=== PATIENT | male | born 1930 | race Caucasian/White ===

== ENCOUNTER → 2016-10-15 | Outpatient (CLI) | payer OTHER | LOC: SBRMNEURO 21:00 | PROVIDERS: ATTEND Psychiatry & Neurology Sleep Medicine | DX: G47.33 Obstructive sleep apnea (adult) (pediatric) (principal) ==

== ENCOUNTER → 2017-01-01 | Outpatient (CLI) | payer OTHER | LOC: FCPNEURO 21:00 | PROVIDERS: ATTEND Psychiatry & Neurology Sleep Medicine | DX: G47.33 Obstructive sleep apnea (adult) (pediatric) (principal) ==

== ENCOUNTER → 2017-03-11 | Outpatient (CLI) | payer OTHER | LOC: BHFA 13:15 | PROVIDERS: ATTEND Internal Medicine Cardiovascular Disease | DX: I38 Endocarditis, valve unspecified (principal); I10 Essential (primary) hypertension; R60.9 Edema, unspecified ==

== ENCOUNTER 2017-04-15 10:10 | Inpatient (IN) | payer OTHER ==
--- NOTE | 2017-04-15 10:52 | CPEKG ---
Heart Rate: 63 RR Interval: 952 QRSD Interval: 114 QT Interval: 448 QTC Interval: 459 QRS Maxie: -36 T Wave Maxie: 40 EKG Severity - ABNORMAL ECG - EKG Impression: ATRIAL FIBRILLATION EKG Impression: NONSPECIFIC IVCD WITH LAD Electronically Signed By: Keron Aguirre 15-Apr-2017 14:57:55
--- NOTE | 2017-04-15 11:42 | EDPHY ---
H & P Stated Complaint: Got dizzy,fell, bit lip Time Seen by Provider: 04/15/17 11:20 - Personal History Current Tetanus Diphtheria and Acellular Pertussis (TDAP): Yes - Medical/Surgical History Hx Asthma: No Hx Chronic Respiratory Disease: No Hx Diabetes: No Hx Cardiac Disease: Yes Hx Renal Disease: No Hx Cirrhosis: No Hx Alcoholism: No Hx HIV/AIDS: No Hx Splenectomy or Spleen Trauma: No Other PMH: PSH: ascending aorta replaced; R shoulder; partial colectomy; vasectomy; appy; T&A; l inguinel hernia; atriclip GRACE exclusion clip. PMH: AAA ; hyperlipidemia; htn; afib; peripheral neuropathy; - Social History Smoking Status: Never smoked Constitutional: Initial Vital Signs Temperature (C) 36.4 C 04/15/17 10:14 Heart Rate 68 04/15/17 10:14 Respiratory Rate 16 04/15/17 10:14 Blood Pressure 137/75 H 04/15/17 10:14 O2 Sat (%) 94 04/15/17 10:14 O2 Delivery Mode Room Air Allergies/Adverse Reactions: lisinopril Allergy (Unknown, Verified 04/15/17 10:13) amiodarone HCl [From Cordarone] Allergy (Verified 04/15/17 10:13) cat dander Allergy (Verified 04/15/17 10:13) ibuprofen [From Advil] Allergy (Verified 04/15/17 10:13) ARMS ITCH NSAIDS (Non-Steroidal Anti-Inflamma Allergy (Verified 04/15/17 10:13) Penicillins Allergy (Verified 04/15/17 10:13) HANDS SWELLED Home Medications: Medication Instructions Recorded Atorvastatin Calcium [Lipitor] 20 mg PO DAILY 11/21/11 Carvedilol [Coreg] 3.125 mg PO BIDMEAL 11/21/11 Famotidine [Pepcid] 20 mg PO DAILY 11/21/11 Ascorbic Acid [Vitamin C 500 mg 04/02/13 (OTC)] Aspirin EC [Aspirin EC 325 mg 04/02/13 (OTC)] Cholecalciferol (Vitamin D3) 400 unit PO 04/02/13 [Vitamin D3] Clobetasol 0.05% [Temovate Cream] 04/02/13 Glucosam/Chondroit/C/Manganese 04/02/13 [Cosamin Ds Capsule] Hydrocodone/APAP 5/325 [Springs 1 - 2 tab PO Q4PRN PRN #20 tab 04/02/13 5/325 (*)] Latanoprost [Xalatan 0.005% (RX)] 04/02/13 Methocarbamol [Robaxin 750 mg (*)] 750 - 1,500 mg PO QID PRN #30 tab 04/02/13 Ubidecarenone [Co Q-10 200 mg] 04/02/13 hydrOXYzine HCL [Hydroxyzine HCl] 04/02/13 Bystolic 11/19/15 Norvasc 2.5 mg (RX) 11/19/15 Xalatan 0.005% (RX) 11/19/15 Medical Decision Making - Diagnostics Imaging Results: Imaging Impressions Head CT 04/15/17 12:05 Impression: 1. Moderate atrophy. 2. No hemorrhage, mass effect, or definite acute peripheral infarct. 3. Tiny chip fracture suspected associated with the anterior margin of the nasal bone as well as nasal spine. Findings discussed with Keron Aguirre MD at 13:05 hour, 04/15/2017. Imaging: Discussed imaging studies w/ lidding machine operator Radiologist, I viewed and interpreted images myself ED Course/Re-evaluation: CHIEF COMPLAINT: Dizziness, syncope HISTORY OF PRESENT ILLNESS: The patient is an 86 y/o male, with a history of atrial fibrillation, arriving with his complaining of dizziness and subsequent syncope this morning. He was walking around the track at the [facility] and began to feel dizzy. He walked towards the bleachers to sit down, but believes he passed out before getting there. He fell on his left side and struck his face. He complains of right rib pain and lip abrasion. He denies unilateral weakness, paresthesias, headache, vision changes, speech difficulty, recent illness. He does mention he's had an intermittently rapid heart rate over the last few weeks, but denies any associated symptoms with this previously. No anticoagulants. REVIEW OF SYSTEMS: A 10 point review of systems was performed and is negative with the exception of the elements mentioned in the history of present illness. PHYSICAL EXAM: HR, BP, O2 Sat, RR. Temp noted General Appearance: Alert, well hydrated, appropriate, and non-toxic appearing. Head: Atraumatic without scalp tenderness or obvious injury Eyes: Pupils equal, round, reactive to light and accommodation, EOMI, no trauma , no injection. Nose: Atraumatic, no rhinorrhea, clear. Nasal contusion. Throat: Mucus membranes moist. Lip contusion. Neck: Supple, non-tender, no lymphadenopathy. Respiratory: No retractions, no distress, no wheezes, and no accessory muscle use. Lungs are clear to auscultation bilaterally. Cardiovascular: Irregularly irregular rate and rhythm, no murmurs, rubs, or gallops. Good capillary refill all extremities. Gastrointestinal: Abdomen is soft, non-tender, non-distended, no masses, no rebound, no guarding, no peritoneal signs. Musculoskeletal: Normal active ROM of all extremities, atraumatic. Tenderness to right anterior ribs. Neurological: Alert, appropriate, and interactive. Nonfocal neuro exam. Skin: No rashes, good turgor, no nodules on palpation. PAST MEDICAL HISTORY: Atrial fibrillation, AAA; hyperlipidemia, hypertension, peripheral neuropathy; PAST SURGICAL HISTORY: ascending aorta replaced; R shoulder; partial colectomy; vasectomy; appendectomy; T&A; l inguinal hernia; AtriClip GRACE exclusion clip SOCIAL HISTORY: at bedside Hiv Prevention Specialist: Dr. Mendoza DIAGNOSTICS/PROCEDURES/CRITICAL CARE TIME: The 12 lead EKG was interpreted by myself. Atrial fibrillation rate 65. See hard copy and/or "tracemaster" electronic copy for interpretation. Head CT: normal Maxillofacial CT: minor nasal fracture Chest CTA: nondisplaced right anterior rib fractures DIFFERENTIAL DIAGNOSIS: The differential diagnosis for the patient's syncope included but was not limited to vasovagal syncope, arrhythmia, dehydration, cardiogenic causes, neurogenic causes, and blood loss. MEDICAL DECISION MAKING: This is an non-anticoagulated 86 y/o male with a history of atrial fibrillation who presents with dizziness and facial contusion secondary to a syncope this morning. He has small lip and nasal contusion on exam and irregular heart rate. His neuro exam is normal. Plan for IV, labs, EKG, head, face, and chest CTs. He will likely require admission. EKG shows rate-controlled atrial fibrillation. CTs pending. 1203: Spoke with hospitalist service. Dr. Ortiz accepts admission. Patient intermittently drops heart rate into 40-50s. I've consulted with Dr. Mendoza and [place] from cardiology. They will follow him during admission. BNP is elevated at 843. - Data Points Laboratory Results: Laboratory Results 04/15/17 11:18 04/15/17 11:18 04/15/17 04/15/17 04/15/17 11:18 11:18 11:18 WBC 9.66 10^3/uL H 10^3/uL (3.80-9.50) RBC 4.49 10^6/uL 10^6/uL (4.40-6.38) Hgb 13.7 g/dL g/dL (13.7-17.5) Hct 41.6 % % (40.0-51.0) MCV 92.7 fL fL (81.5-99.8) MCH 30.5 pg pg (27.9-34.1) MCHC 32.9 g/dL g/dL (32.4-36.7) RDW 13.1 % % (11.5-15.2) Plt Count 204 10^3/uL 10^3/uL (150-400) MPV 9.5 fL fL (8.7-11.7) Neut % (Auto) 80.7 % H % (39.3-74.2) Lymph % (Auto) 10.2 % L % (15.0-45.0) [place] % (Auto) 5.2 % % (4.5-13.0) Eos % (Auto) 2.4 % % (0.6-7.6) Baso % (Auto) 0.7 % % (0.3-1.7) Nucleat RBC Rel Count 0.0 % % (0.0-0.2) Absolute Neuts (auto) 7.79 10^3/uL H 10^3/uL (1.70-6.50) Absolute Lymphs (auto) 0.99 10^3/uL L 10^3/uL (1.00-3.00) Absolute Monos (auto) 0.50 10^3/uL 10^3/uL (0.30-0.80) Absolute Eos (auto) 0.23 10^3/uL 10^3/uL (0.03-0.40) Absolute Basos (auto) 0.07 10^3/uL 10^3/uL (0.02-0.10) Absolute Nucleated RBC 0.00 10^3/uL 10^3/uL (0-0.01) Immature Gran % 0.8 % % (0.0-1.1) Immature Gran # 0.08 10^3/uL 10^3/uL (0.00-0.10) PT 13.7 SEC SEC (12.0-15.0) INR 1.06 (0.83-1.16) APTT 29.8 SEC SEC (23.0-38.0) Sodium 138 mEq/L mEq/L (134-144) Potassium 4.7 mEq/L mEq/L (3.5-5.2) Chloride 101 mEq/L mEq/L (97-110) Carbon Dioxide 23 mEq/l mEq/l (22-31) Anion Gap 14 mEq/L mEq/L (8-16) BUN 23 mg/dL mg/dL (7-23) Creatinine 0.9 mg/dL mg/dL (0.7-1.3) Estimated GFR > 60 Glucose 96 mg/dL mg/dL (70-100) Calcium 9.2 mg/dL mg/dL (8.5-10.4) Magnesium 2.3 mg/dL mg/dL (1.6-2.3) Troponin I < 0.012 ng/mL ng/mL (0-0.034) NT-Pro-B Natriuret Pep 843 pg/mL H pg/mL (0-450) Departure - Departure Disposition: [facility] Inpatient Acute Clinical Impression: Atrial fibrillation Qualifiers: Atrial fibrillation type: chronic Qualified Code(s): I48.2 - Chronic atrial fibrillation Syncope Qualifiers: Syncope type: unspecified Qualified Code(s): R55 - Syncope and collapse Contusion Qualifiers: Encounter type: initial encounter Contusion area: head Contusion of head detail : lip Qualified Code(s): S00.531A - Contusion of lip, initial encounter Left rib fracture Qualifiers: Encounter type: initial encounter Rib fracture type: multiple ribs Fracture type: closed Qualified Code(s): S22.42XA - Multiple fractures of ribs, left side , initial encounter for closed fracture Nasal fracture Qualifiers: Encounter type: initial encounter Fracture type: closed Qualified Code(s): S02.2XXA - Fracture of nasal bones, initial encounter for closed fracture Condition: Fair Report Scribed for: Keron Aguirre Report Scribed by: Evelia Curiel Date of Report: 04/15/17 Time of Report: 11:42
[2017-04-15 12:10] LABS: % IMMATURE GRANULYOCYTES 0.8 % (0.0-1.1); ABSOLUTE IMMATURE GRANULOCYTES 0.08 10^3/uL (0.00-0.10); ADD DIFF? NO; ADD MORPH? NO; ADD SCAN? NO; ATYPICAL LYMPHOCYTE FLAG 0 (0-99); FRAGMENT RBC FLAG 0 (0-99); HEMATOCRIT 41.6 % (40.0-51.0); HEMOGLOBIN 13.7 g/dL (13.7-17.5); LEFT SHIFT FLG 10 (0-99); LIPEMIA HEMOLYSIS FLAG 80 (0-99); MEAN CELL HEMOGLOBIN 30.5 pg (27.9-34.1); MEAN CELL HEMOGLOBIN CONCENTR. 32.9 g/dL (32.4-36.7); MEAN CELL VOLUME 92.7 fL (81.5-99.8); MEAN PLATELET VOLUME 9.5 fL (8.7-11.7); PLATELET CLUMPS FLAG 10 (0-99); PLATELET COUNT 204 10^3/uL (150-400); RED BLOOD CELL COUNT 4.49 10^6/uL (4.40-6.38); RED CELL DISTRIBUTION WIDTH 13.1 % (11.5-15.2)
[2017-04-15 12:14] LABS: INR 1.06 (0.83-1.16); PROTIME(PATIENT) 13.7 SEC (12.0-15.0)
[2017-04-15 12:15] LABS: APTT 29.8 SEC (23.0-38.0)
[2017-04-15 12:19] LABS: ANION GAP 14 mEq/L (8-16); CALCIUM 9.2 mg/dL (8.5-10.4); CARBON DIOXIDE 23 mEq/l (22-31); CHLORIDE 101 mEq/L (97-110); CREATININE 0.9 mg/dL (0.7-1.3); GLOMERULAR FILTRATION RATE > 60; GLUCOSE 96 mg/dL (70-100); MAGNESIUM 2.3 mg/dL (1.6-2.3); POTASSIUM 4.7 mEq/L (3.5-5.2); SODIUM 138 mEq/L (134-144)
[2017-04-15 12:29] LABS: TROPONIN I < 0.012 ng/mL (0-0.034)
[2017-04-15] MEDS ORDERED: IOPAMIDOL (ISOVUE-300) 100 ML BTL ONE (12:31)
[2017-04-15] MEDS ORDERED: ACETAMINOPHEN 325 MG TAB PO PRN (14:32)
[2017-04-15] MEDS ORDERED: HYDROmorphONE/DILAUDID 1 MG/ML SYR IVP PRN (14:32)
[2017-04-15] MEDS ORDERED: ONDANSETRON 4 MG/2 ML VIAL IVP PRN (14:32)
--- NOTE | 2017-04-15 15:14 | GHP ---
[f rep st] HISTORY AND PHYSICAL DATE OF ADMISSION: 04/15/2017 CHIEF COMPLAINT: Syncope. HISTORY: The patient is an 86-year-old male who was at the gym doing his usual laps at the [facility]. Immediately upon starting his first lap today, he was not feeling well. On the second lap, he became acutely dizzy. He tried to move toward the bleachers but passed out before making it, striki ng the floor on the left side of his body, including hitting his chest wall and face. He did not martino ve any chest pain prior to passing out, but has had escalating chest pain after his fall. Chest trixie n got much worse when he was lying flat in CAT scan. He describes it as a bilateral band-like pain across his chest, pleuritic, radiating to his right jaw, worse with lying down. PAST MEDICAL HISTORY: 1. Atrial fibrillation. 2. Hypertension. 3. Ascending aortic aneurysm, status post aortic root replacement. 4. Prostate cancer, status post prostatectomy. 5. Colon cancer, status post partial colectomy. 6. Obstructive sleep apnea, on CPAP. PAST SURGICAL HISTORY: Appendectomy, hernia repair. MEDICATIONS: Please see computerized record for full detailed list. He takes Bystolic and has not had any recent dose change. ALLERGIES: Lisinopril, which causes angioedema. Amiodarone, penicillin, and NSAIDs. SOCIAL HISTORY: No smoking. Drinks 2 alcoholic beverages per day. He lives alone. REVIEW OF SYSTEMS: Complete review of systems obtained. Review of systems was negative for constit utional, HEENT, GI, pulmonary, breast, , hematology, skin, musculoskeletal, endocrine, psych, exce pt for positives noted in HPI. FAMILY HISTORY: Reviewed and noncontributory to presenting complaint. PHYSICAL EXAMINATION: GENERAL: Well-developed, well-nourished male, in no acute distress. VITAL S IGNS: Temperature is 36.8, pulse 67, blood pressure 150/73, saturating 95% on room air. HEENT: No rmal conjunctivae. Pupils reactive to light. ENT: Normal ears and nose. Hearing intact. Normal teeth. Oropharynx moist. NECK: Trachea midline. No thyromegaly. CHEST: Normal respiratory effor t. Lungs clear to auscultation bilaterally. CARDIOVASCULAR: Regular rate and rhythm. No murmur. No lower extremity edema. ABDOMEN: Soft, nontender. No hepatosplenomegaly. SKIN: Warm, dry, in tact, without rash. MUSCULOSKELETAL: No cyanosis or clubbing. Strength 5/5 upper and lower extrem ities. NEUROLOGIC: Cranial nerves intact. Normal sensation to light touch. PSYCH: Alert and bertrand ented x3. Normal mood. Normal affect. Normal judgment and insight. Normal memory. LABORATORY DATA: White count 9.66, hematocrit 41.6, platelets 204, sodium 138, potassium 4.7, chlor zoe 101, bicarb 23, BUN 23, creatinine 0.9, glucose 96. BNP is 843. Troponins negative. INR is 1. 06. EKG viewed by me. My personal interpretation is atrial fibrillation without any ischemic ST or T-wave changes. Head CT is negative, except for a tiny chip fracture on his nasal bone. CT scan o f the chest is negative for dissection. He does have 7th and 8th rib fractures on the right and 8th and 9th rib fracture on the left. ASSESSMENT/PLAN: 1. Syncope. Significant bradycardia was noted in the emergency room. This may be the etiology. I will hold his Bystolic. Will watch him on telemetry. Will check a TSH, echocardiogram, and orthos tatics. 2. Rib fractures x4, bilateral. I have consulted Trauma and spoken with Dr. Hart. They have req uested he transfer to ICU. He is high risk, given his numerous fractures and advanced age. 3. Atrial fibrillation. We will watch his rate off his beta sophia. He is on aspirin for stroke prevention. 4. Ascending aortic aneurysm, status post repair. CT angiogram is negative for dissection. 5. Hypertension. Will watch blood pressure on Norvasc alone. CODE STATUS: DNR, per patient request. ADMISSION STATUS: Will admit to inpatient as we will need prolonged monitoring to ensure stability post multiple trauma rib fractures. DVT PROPHYLAXIS: He is high risk. Will place him on subcu Lovenox. /[id number]/MODL
--- NOTE | 2017-04-15 16:59 | CPEKG ---
Heart Rate: 72 RR Interval: 833 P-R Interval: 228 QRSD Interval: 118 QT Interval: 444 QTC Interval: 486 P Avilla: 0 QRS Avilla: -39 T Wave Avilla: 45 EKG Severity - ABNORMAL ECG - EKG Impression: ATRIAL FIBRILLATION EKG Impression: NONSPECIFIC INTRAVENTRICULAR BLOCK,MORE PRONOUNCED SINCE APRIL 15, 2017, 10:50 EKG Impression: LAD, CONSIDER LEFT ANTERIOR FASCICULAR BLOCK EKG Impression: 1 PVC Electronically Signed By: Ramiro Ramirez 16-Apr-2017 06:22:48
[2017-04-15] MEDS: oxyCODONE IR 5 MG TAB PO PRN ×2 (17:09→21:05)
--- NOTE | 2017-04-15 17:09 | ECHO ---
[id number] + + [address] : : [place] [address] : : [phone] + + Adult Echocardiographic Report + --------+ :Name: DAREN OKEEFE FStudy Date: 04/15/2017 02:56 PM : : Hospital Admission Number: [id number] Locat ion: 220: :: 1930 Gender: Male Height: 72 in : :Age: 86 yrs Race: WH Weight: 199 l b : :Reason For Study: Eval LV Fx : : BSA: 2.1 mete rs2 : :History: Bradycardia, Atrial Fibrillation, Hx of Ascending Ao : :replacement 2012 : + --------+ MMode/2D Measurements \T\ Calculations IVSd: 1.0 cm LVIDd: 3.8 cm FS: 47.2 % MV Diam: 3.1 cm LVPWd: 1.1 cm LVIDs: 2.0 cm EDV(Teich): 63.1 ml ESV(Teich): 13.1 ml EF(Teich): 79.2 % Ao root diam: 3.6 cm LVOT diam: 2.1 cm ACS: 1.1 cm LVOT area: 3.5 cm2 Normal Measurement Values: + + :LVIDd (3.5-5.7cm) IVSd (0.6-1.1cm) LVPWd (0.6-1.1cm) Aortic Root (2.0-3.7cm)Left Atrium (1.5-4.0cm): :LV Vol(d) (76-115ml) LV Vol(s) (29-48ml) Ejec Fraction (50-65%)PV Neptali (0.6- 1.2m/s) TV Neptali (0.4-1.0m/s) : :MV E Neptali (0.8-1.0m/s)MV A Neptali (0.3-1.0m/s)LVOT Neptali (0.7-1.2m/s) Asc Ao Neptali ( 0.9-1.8m/s) : + + Doppler Measurements \T\ Calculations MV E max neptali: MV area (1 diam): Ao V2 max: AI max neptali: 93.8 cm/sec 193.8 cm/sec 385.9 cm/sec 7.5 cm2 Ao max PG: AI max PG: MV Flow area 15.0 mmHg 59.6 mmHg (1diam): 7.5 cm2 Ao mean PG: AI dec slope: 8.1 mmHg Ao V2 mean: 148.3 cm/sec2 136.3 cm/sec AI P1/2t: Ao V2 VTI: 762.3 msec 50.9 cm RADHA(I,D): 1.4 cm2 LV V1 mean PG: MR max neptali: SV(LVOT): 69.5 ml PA V2 max: 1.3 mmHg 502.9 cm/sec 115.4 cm/sec LV V1 mean: MR max PG: PA max P.3 mmHg 54.5 cm/sec 101.1 mmHg LV V1 VTI: 20.1 cm TR max neptali: 281.0 cm/sec TR max P.6 mmHg RAP systole: 5.0 mmHg RVSP(TR): 36.6 mmHg Left Ventricle The left ventricle is normal in size. There is normal left ventricular wall thickness. The left ventricular ejection fraction is normal. There is Doppler evidence for diastolic dysfunction. The rhythm is atrial fibrillation. The left ventricular wall motion is normal. Right Ventricle The right ventricle is normal in size and function. Atria The left atrium is mildly dilated. The right atrium is mildly dilated. Mitral Valve The mitral valve is normal. There is no evidence of mitral valve prolapse. There is no mitral valve stenosis. There is mild mitral regurgitation. Tricuspid Valve Normal tricuspid valve. There is trace tricuspid regurgitation. Right ventricular systolic pressure is normal. Aortic Valve There is mild aortic valve calcification. There is no aortic stenosis. Mild aortic regurgitation. The AI jet is eccentric. Pulmonic Valve The pulmonic valve is normal in structure and function. There is no pulmonic valvular regurgitation. Great Vessels There is a dacron graft in the ascending aortic position. Pericardium/Pleural There is no pericardial effusion. Conclusion A complete two-dimensional transthoracic echocardiogram was performed (2D, M-mode, Doppler and color flow Doppler). The left ventricular ejection fraction is normal. There is Doppler evidence for diastolic dysfunction. The rhythm is atrial fibrillation. The left ventricular wall motion is normal. The left atrium is mildly dilated. The right atrium is mildly dilated. The mitral valve is normal. There is mild mitral regurgitation. There is trace tricuspid regurgitation. Right ventricular systolic pressure is normal. There is mild aortic valve calcification. Mild aortic regurgitation. The AI jet is eccentric. There is a dacron graft in the ascending aortic position. There is no pericardial effusion. Final Reading Physician: Baldev Costello signed on 04/15/2017 05:08 PM Ordering Physician: Lizzy Ortiz Performed By: Krishan Parra, JARENCS
[2017-04-15] MEDS: FLUTICASONE NASAL 120 SPRAYS/16 GM MDI EACHNARE SCH (19:46)
[2017-04-15] MEDS ORDERED: ACETAMINOPHEN 650 MG PO SCH (21:00)
[2017-04-15] MEDS ORDERED: LATANOPROST 0.005% 2.5 ML OPHT DROPS EACHEYE SCH (21:00)
[2017-04-15] MEDS: LATANOPROST 0.005% 2.5 ML OPHT DROPS EACHEYE SCH (21:04)
[2017-04-15] MEDS: ACETAMINOPHEN 325 MG TAB PO SCH (21:06)
[2017-04-15] MEDS: FAMOTIDINE 20 MG TAB PO SCH (21:06)
[2017-04-15] MEDS: diphenhydrAMINE 25 MG CAP PO SCH (21:06)
--- NOTE | 2017-04-15 21:14 | GCON ---
[f rep st] CONSULTATION DATE OF CONSULTATION: 04/15/2017 CHIEF COMPLAINT: Syncope. HISTORY OF PRESENT ILLNESS: We were asked by Dr. Ortiz to visit with the patient. The patient is a very pleasant 86-year-old male, known to me from the outpatient setting. He has hypertension, pulm onary hypertension, valvular heart disease with mild mitral regurgitation, moderate tricuspid regurg itation. In 2011, he had an ascending aortic aneurysm repair with maze procedure and left atrial ap pendage ligation. Other history includes paroxysmal atrial fibrillation (previously declined antico agulation therapy). He also has sleep apnea and started CPAP a few months ago. He was in his usual state of reasonable health. He went to the gym this morning and was walking m[place] und the gym as he usually does. There was no one else in the room he was in. After 1 lap, he felt lightheaded and sat down. He then got up again and started walking and felt profoundly lightheaded. He tried to make it over to the bleachers but before that could happen he briefly lost consciousne ss and had a fall during which he sustained bilateral rib fractures as well as a nasal fracture and a scalp contusion. He was brought to the hospital for further evaluation. The patient denies a prodrome of palpitations or chest pain. He does have chronic exertional dyspne a. At his last cardiology visit on March 11, we had decreased his Norvasc as he was complaining of lightheadedness and his lightheadedness had since resolved. Today was the 1st day he has felt light headed since March 11. REVIEW OF SYSTEMS: A full 10-point Review of Systems performed is negative except that which is out lined above. Specifically, the patient reports he has not had nausea, vomiting or diarrhea. No ble eding. He has been eating normally. He does not drink more than 1 cup of decaf coffee in the [place]. He did eat breakfast this morning. PAST MEDICAL HISTORY: 1. Paroxysmal atrial fibrillation. 2. History of aortic aneurysm repair. 3. Hha-rjzp-zuctpmpu coronary disease. 4. Dyslipidemia. 5. Hypertension. 6. Pulmonary hypertension. 7. Neuropathy. 8. Sleep apnea on CPAP. 9. Prostate cancer. 10. Pulmonary nodule. 11. Valvular heart disease as detailed above. SURGICAL HISTORY: 1. Aortic aneurysm repair. 2. Appendectomy. 3. Hernia repair. 4. Prostate surgery. OUTPATIENT MEDICATIONS: Amlodipine 2.5 mg daily, aspirin 325 mg daily, atorvastatin 20 mg daily, Be nadryl, Bystolic 5 mg daily, Lasix 40 mg daily. SOCIAL HISTORY: The patient has an involved family. His daughter is at the bedside. He does not s moke cigarettes and drinks alcohol in moderation. FAMILY HISTORY: Not applicable to the current case. PHYSICAL EXAM: VITAL SIGNS: Blood pressure 138/75. His admission blood pressure in the ER was 137 /75. Orthostatic vital signs are pending. Heart rate has been in the 60s. Respiratory rate is 17. Oxygen saturation 92% on room air. He is afebrile. GENERAL: Well-appearing older male, in no ac [place] distress. HEENT: Sclerae clear and free of jaundice. Mucous membranes are moist. He does hav e a small contusion on his left scalp. NECK: JVP less than 10. HEART: Irregularly irregular rhyt hm with 2/6 holosystolic murmur at the left lower sternal border and at the apex. No S3. LUNGS: Bi basilar rales without wheezes or rhonchi. ABDOMEN: Soft, nontender, nondistended without bruits, m asses, or hepatosplenomegaly. EXTREMITIES: Warm and well perfused with trace bilateral ankle edema . No cyanosis or clubbing. NEURO: Alert and oriented x3 without gross focal neurological deficits . LABORATORY DATA: White count 9.66 with a left shift. Hematocrit 41.6 and platelets are 204. INR i s normal. Sodium 138, potassium 4.7, chloride 101, bicarb 23, BUN 23, creatinine 0.9, glucose 96, magnesium 2.3. Troponin is negative. BNP 843. EKG reviewed by me shows atrial fibrillation with ventricular response in the 60s. Incomplete right bundle branch block. Left anterior fascicular block. His echocardiogram is pending. Facial CT an d head CT show moderate atrophy. No hemorrhage. A tiny chip fracture suspected with the anterior m argin of the nasal bone. Chest CT: Nondisplaced bilateral rib fractures. There are nondisplaced f ractures of the anterior right 7th and 8th ribs on the right side and the anterior 8th and 9th ribs on the left side. Mild dilation of the descending thoracic aorta near the arch level. Moderate ath erosclerotic plaque. Coronary artery plaque. ASSESSMENT AND PLAN: An 86-year-old male, whose cardiac history includes paroxysmal atrial fibrilla tion and ascending aortic aneurysm repair as well as valvular heart disease. He is admitted with sy ncope and significant injury related to the syncope. This is concerning for bradycardic etiology ve rsus orthostatic etiology. Acute coronary syndrome is unlikely. 1. Syncope with injury: He will have a full trauma evaluation. He will be observed in the ICU. H e will be observed on telemetry. I did explain that I think the patient will need a pacemaker, even if we hold his beta-blockers. He is n.p.o. for this procedure possibly to be done tomorrow. 2. Atrial fibrillation: He has had intermittent atrial fibrillation. He does appear to be in atri al fibrillation with controlled ventricular response. He has previously declined anticoagulation th era. He has had a left atrial appendage ligation. We will discuss this once he has recovered fro m his injuries and possible pacemaker. 3. Hypertension: Currently well controlled. Observe off Bystolic. Continue Norvasc. 4. Valvular heart disease: Followup echocardiogram. I do not think his valvular disease contribut ed to his syncope in any way. 5. History of pulmonary hypertension: Hopefully this is improved now that he is on CPAP. Evaluate with echocardiogram. Thank you for allowing us to participate in this patient's care. Will follow with you. /[id number]/MODL
[2017-04-16] MEDS: oxyCODONE IR 5 MG TAB PO PRN ×4 (05:46→21:18)
--- NOTE | 2017-04-16 06:40 | GCON ---
[f rep st] CONSULTATION TRAUMA CONSULTATION REFERRING PHYSICIAN: Lizzy Ortiz MD REASON FOR CONSULTATION: 86-year-old gentleman with fall and fracture of 4 ribs. HISTORY: The history is well summarized in the chart, but essentially he was in his usual state of good health and walking around the gym. He made 1 lap, felt slightly lightheaded, and sat down. He then got up and began to walk again , became profoundly lightheaded, tried to make it back to the bleachers but lost consciousness and fell. Recalls waking up on his left side. He has a small scalp contusion, possible nasal fracture, and fractures of right ribs 7 and 8 anteriorly and left ribs 8 and [address] Mendoza's note. He does have hypertension and pulmonary hypertension. He has valvular heart disease, mitral regurgitation, moderate tricuspid regurgitation. He had an ascending aortic arch repair through an open procedure. He had left atrial appendage ligation. He has paroxysmal atrial fibrillation. He also has sleep apnea and has been on CPAP for approximately a month. He potentially may get a pacemaker tomorrow. Additional history is chronic exertional dyspnea. He has had problems of being a little lightheaded in the past. His Norvasc dose was decreased on 04/10. ALLERGIES: He does have an allergy to lisinopril. CURRENT MEDICATIONS: Include amlodipine 2.5 mg daily, atorvastatin 20 mg daily , Bystolic 5 mg daily, Lasix 40 mg daily, and occasional Bentyl. He has glaucoma and uses eye drops. He does have skin irritation and uses medication. PAST SURGICAL HISTORY: Other surgeries have included a right colon resection for cancer, a TURP which incidentally identified prostate cancer. He has had a right rotator cuff repair. He has a left rotator cuff injury, but because it is felt to have a very low chance of success, that has not been repaired. He has had an appendectomy, a tonsillectomy, adenoidectomy, and right inguinal hernia repair. REVIEW OF SYSTEMS: His left ankle is bone on bone. He wears glasses and hearing aids. He does not have reflux at this point but does take medications to minimize stomach acid information and avoids eating or drinking within 3 hours of going to bed at night. He does have neuropathy in both his feet. He was admitted to the medicine floor apparently before his CT results were back showing the rib fractures. Because of the rib fractures and his age, I was consulted. I suggested we move him to the intensive care unit to provide closer observation. He has been using his IS successfully to 1999. He states as long as he does not move too much, he is fairly comfortable. PHYSICAL EXAMINATION: GENERAL: He is awake and alert. HEENT: His skull is normocephalic and atraumatic although the bridge of his nose is not tender. There is a slight ecchymosis there. He does recall having a nose bleed at the time of the accident. There is no Low sign. There are no raccoon eyes. He has normal dental occlusion. NECK: Nontender to palpation as are his lumbar and thoracic spine. I do not detect any carotid bruits. LYMPHATICS: There is no cervical, supraclavicular, axillary, or inguinal lymphadenopathy. LUNGS: Clear to auscultation. CHEST: His ribs are fractured anteriorly on both sides. Rib 7 and 8 on the right and 8 and 9 on the left. I do not compress the chest as I know he has fractures. ABDOMEN: Soft and nontender, with normoactive bowel sounds. PELVIS: Stable to AP and lateral compression. His upper and lower extremities are unremarkable. He, as mentioned, is getting his IS to 1999. I think the current medication regimen which is outlined by Dr. Ortiz is excellent. I would suggest a Lidoderm patch which can be actually split and put over the rib fractures on either side. This may facilitate some of his pain control. A chest x-ray was ordered for the morning. /[id number]/MODL MTDD
[2017-04-16] MEDS: ASPIRIN EC 325 MG TAB PO SCH (08:52)
[2017-04-16] MEDS: ATORVASTATIN CALCIUM 20 MG TAB PO SCH (08:52)
[2017-04-16] MEDS: LIDOCAINE 5% 1 EA PATCH TD SCH (08:52)
--- NOTE | 2017-04-16 10:42 | PDCARPN ---
Cardiology Progress Note Assessment/Plan: Assessment/plan: 86-year-old male with a history of hypertension, valvular heart disease, paroxysmal atrial fibrillation, and history of ascending aortic aneurysm repair in 2011. He is admitted on April 15 with a syncopal echo episode complicated by significant injury including nasal fracture and bilateral rib fractures. He has not had profound bradycardia, but does have a slow ventricular response in atrial fibrillation. His Bystolic has been held. 1. Syncope: This is very concerning for Zeke arrhythmia. Troponins have been negative. Echocardiogram without regional wall motion abnormalities. Hold Bystolic. He is not orthostatic. Even without profound bradycardia, I recommended pacemaker insertion given the nature of his syncope and significant injury. We will discuss with Dr. Carroll, and likely plan on doing this tomorrow morning. 2. Hypertension: Currently well controlled simply on amlodipine 2.5 mg daily. 3. Valvular heart disease and history of pulmonary hypertension: He has pulmonary hypertension has resolved with the use of CPAP. His valvular disease is stable and not contributory to his syncopal event. 4. Atrial fibrillation: Currently in atrial fibrillation. He has previously declined anticoagulation therapy other than aspirin. He does have a left atrial appendage ligature. We will discuss anticoagulation again after his pacemaker. It is not clear the duration of his atrial fibrillation, therefore I do not know whether he would be a candidate for dual-chamber single-chamber pacemaker. Will discuss with Dr. Carroll. 5. Rib fractures and nasal fracture: He has pain is well managed. Appreciate Dr. Hart consultation. He is using incentive spirometry and getting physical therapy. 04/16/17 10:44 Subjective: Carlitos's pain is well managed. He felt a little bit lightheaded earlier today walking with physical therapy. He is not dyspneic. Reviewed/Discussed With: family, hospitalist, other (Dr. Hart) Objective: Vital Signs (8 Hrs) Temp Pulse Resp BP Pulse Ox 04/16/17 09:10 136/78 H 04/16/17 08:00 36.5 C 62 15 136/78 H 93 04/16/17 06:00 66 16 113/63 92 04/16/17 04:00 52 L 13 106/52 L 97 Intake/Output (24 Hrs) 04/15/17 04/16/17 04/17/17 05:59 05:59 05:59 Intake Total 450 Output Total 350 Balance 100 Intake: Oral (ml) 450 Output: Urine (ml) 350 Urinal 350 Other: Weight 90.7 kg Intake Quantity Yes Sufficient Number of Voids Toilet 1 1 NAD. sitting up in bed JVP less than 10. Irregularly irregular rhythm with soft holosystolic murmur left lower sternal border Lungs clear auscultation bilaterally without wheezes rhonchi or rales Extremities warm well perfused without cyanosis clubbing or edema The patient had orthostatic vital signs this morning. His blood pressure and heart rate did not change appreciably going from lying down to sitting to standing Result Diagrams: 04/15/17 11:18 04/15/17 11:18 Cardiac Labs: Cardiac Lab Results (72 Hrs) 04/16/17 04/15/17 00:20 18:44 Troponin I < 0.012 < 0.012 Telemetry: AF with slow V response. No significant pauses Echocardiogram: Dated 04/15/2017 reviewed: Normal LV systolic function without regional wall motion abnormalities. [id number] aortic regurgitation. No aortic stenosis. Intact ascending aortic Dacron graft. Mild mitral regurgitation. Mild tricuspid regurgitation with top-normal estimated pulmonary pressures. ICD10 Worksheet Patient Problems: Problems Problem Status Onset Atrial fibrillation Acute Syncope Acute Contusion Acute Left rib fracture Acute Nasal fracture Acute
[2017-04-16] MEDS: FUROSEMIDE 40 MG TAB PO SCH (11:34)
[2017-04-16] MEDS: ENOXAPARIN 40 MG/0.4 ML SYR SC SCH (11:49)
[2017-04-16] MEDS: FLUTICASONE NASAL 120 SPRAYS/16 GM MDI EACHNARE SCH (11:49)
--- NOTE | 2017-04-16 13:40 | GCON ---
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 He presented after a loss of consciousness. In discussio n with the patient, apparently he was working out at the gym walking laps. After the first lap he d id not feel well. After the second lap he became dizzy and then subsequently lost consciousness, fa lling, striking his chest and face. He was brought to the emergency room where he was found to have rib fractures, and he was subsequently admitted to the intensive care unit. The cause was thought to be secondary to bradycardia. He is scheduled for a pacemaker placement tomorrow. PAST MEDICAL HISTORY: Again, significant for hypertension, atrial fibrillation, prostate cancer, as cending aortic aneurysm with repair, colon cancer status post colectomy and obstructive sleep apnea. ALLERGIES: Lisinopril, amiodarone, penicillin and nonsteroidal anti-inflammatory drugs. SOCIAL HISTORY: No history of tobacco use. He drinks 2 alcoholic drinks per day. He lives alone. His daughter is at his side. He has excellent family support. PHYSICAL EXAMINATION: VITAL SIGNS: Blood pressure is 154/75, pulse is 78, respirations 20, tempera ture is 36.5, oxygen saturation 93% on room air. GENERAL: He is a well-developed, well-nourished, elderly white male who is resting comfortably, in no acute distress. HEENT: Eyes are LOPEZ, EOMI. Throat shows no erythema or tonsillar hypertrophy. NECK: Supple. There is no cervical adenopathy. HEART: Irregularly irregular, with a 2/6 systolic murmur at the left sternal border, without radi ation. LUNGS: Diminished breath sounds, but no wheeze. ABDOMEN: Soft, nontender. Bowel sounds a re present in all 4 quadrants. EXTREMITIES: No clubbing, cyanosis, or edema. LABORATORIES: White count is 9.6, hemoglobin 13, hematocrit 41, platelet count is 204. INR is 1.06 . Sodium is 138, potassium 4.7, chloride 101, CO2 is 23, BUN 23, creatinine 0.9, glucose is 96. TS H is 5.1. BNP is 843. IMAGING: CT scan of the chest shows nondisplaced bilateral rib fractures and subsegmental atelectas is. CT scan of the head shows atrophy with no evidence of hemorrhage. There is a tiny nasal bone f racture. Echocardiogram shows normal ejection fraction and mild mitral regurgitation, otherwise nor mal. IMPRESSION: 1. Status post syncope likely secondary to bradycardia. 2. Rib fractures. 3. Nasal bone fracture. 4. History of atrial fibrillation. 5. Prostate cancer. 6. History of colon cancer. 7. Hypertension. 8. Obstructive sleep apnea. RECOMMENDATIONS: 1. The patient is scheduled for a pacemaker placement tomorrow. 2. Aggressive pulmonary toilet with incentive spirometry. 3. Adequate pain control. 4. DVT and PE prophylaxis. 5. Stress ulcer prophylaxis. 6. Early ambulation. Thank you very much please. /[id number]/MODL
--- NOTE | 2017-04-16 16:25 | HOSPPROG ---
Hospitalist Progress Note Assessment/Plan: * Syncope - suspect SSS with afib -pacemaker in am * Rib fractures x 4 -IS, pain control * Afib, s/p maze -DC Bystolic -s/p LA appendage ligation - on ASA * Ascending aortic aneurysm repair * THONY - CPAP Subjective: Rib pain is better Objective: Vital Signs Temp Pulse Resp BP Pulse Ox 37.1 C 60 16 117/59 L 92 04/16/17 16:00 04/16/17 16:00 04/16/17 16:00 04/16/17 16:00 04/16/17 16:00 04/15/17 04/16/17 04/17/17 05:59 05:59 05:59 Intake Total 450 Output Total 350 Balance 100 PT 13.7 SEC (12.0-15.0) 04/15/17 11:18 INR 1.06 (0.83-1.16) 04/15/17 11:18 CXR - negative case d/w Dr. Mendoza and Dr. Hart - Physical Exam Constitutional: no apparent distress, appears nourished, not in pain Cardiovascular: regular rate and rhythym, no murmur, rub, or gallop Respiratory: no respiratory distress, no rales or rhonchi, clear to auscultation Gastrointestinal: normoactive bowel sounds, soft, non-tender abdomen, no palpable masses Skin: no rashes or abrasions, no fluctuance, no induration Neurologic: AAOx3, sensation intact bilaterally Psychiatric: interacting appropriately, not anxious, not encephalopathic, thought process linear ICD10 Worksheet Patient Problems: Problems Problem Status Onset Atrial fibrillation Acute Contusion Acute Left rib fracture Acute Nasal fracture Acute Syncope Acute
--- NOTE | 2017-04-16 19:35 | TRAUMAPN ---
Assessment/Plan: 04/16/2017 Assessment: Pain well controlled Bilateral subsegmental atelectasis. Set for pacemaker tomorrow Plan: Continue to stress use of IS Subjective: I'm felling better Objective: Vital Signs Temp Pulse Resp BP Pulse Ox 37.1 C 60 16 117/59 L 92 04/16/17 16:00 04/16/17 16:00 04/16/17 16:00 04/16/17 16:00 04/16/17 16:00 04/15/17 04/16/17 04/17/17 05:59 05:59 05:59 Intake Total 450 Output Total 350 Balance 100 PT 13.7 SEC (12.0-15.0) 04/15/17 11:18 INR 1.06 (0.83-1.16) 04/15/17 11:18 Physical Exam - Physical Exam General Appearance: alert, no apparent distress Neck: non-tender, full range of motion, supple Respiratory: lungs clear, normal breath sounds Cardiac/Chest: irregularly irregular Abdomen: normal bowel sounds, non-tender, soft Male Genitalia: deferred Rectal: deferred Back: Normal inspection Skin: normal color, warm/dry Extremities: normal range of motion, non-tender, normal inspection Neuro/Psych: no motor/sensory deficits, alert, normal mood/affect, oriented x 3
[2017-04-16] MEDS: FAMOTIDINE 20 MG TAB PO SCH (21:17)
[2017-04-16] MEDS: diphenhydrAMINE 25 MG CAP PO SCH (21:18)
[2017-04-16] MEDS: ACETAMINOPHEN 325 MG TAB PO SCH (21:18)
[2017-04-16] MEDS: LATANOPROST 0.005% 2.5 ML OPHT DROPS EACHEYE SCH (21:24)
[2017-04-16] MEDS: PATCH REMOVAL 1 EA PATCH TD SCH (21:38)
[2017-04-17 05:54] LABS: % IMMATURE GRANULYOCYTES 0.5 % (0.0-1.1); ABSOLUTE IMMATURE GRANULOCYTES 0.04 10^3/uL (0.00-0.10); ADD DIFF? NO; ADD MORPH? NO; ADD SCAN? NO; ATYPICAL LYMPHOCYTE FLAG 10 (0-99); FRAGMENT RBC FLAG 0 (0-99); HEMATOCRIT 43.4 % (40.0-51.0); HEMOGLOBIN 14.1 g/dL (13.7-17.5); LEFT SHIFT FLG 0 (0-99); LIPEMIA HEMOLYSIS FLAG 80 (0-99); MEAN CELL HEMOGLOBIN 30.4 pg (27.9-34.1); MEAN CELL HEMOGLOBIN CONCENTR. 32.5 g/dL (32.4-36.7); MEAN CELL VOLUME 93.5 fL (81.5-99.8); PLATELET CLUMPS FLAG 0 (0-99); PLATELET COUNT 195 10^3/uL (150-400); RED BLOOD CELL COUNT 4.64 10^6/uL (4.40-6.38); RED CELL DISTRIBUTION WIDTH 12.9 % (11.5-15.2)
[2017-04-17 06:23] LABS: ANION GAP 13 mEq/L (8-16); CALCIUM 9.4 mg/dL (8.5-10.4); CARBON DIOXIDE 24 mEq/l (22-31); CHLORIDE 101 mEq/L (97-110); CREATININE 0.9 mg/dL (0.7-1.3); GLOMERULAR FILTRATION RATE > 60; GLUCOSE 103 mg/dL (70-100); POTASSIUM 4.6 mEq/L (3.5-5.2); SODIUM 138 mEq/L (134-144)
[2017-04-17] MEDS ORDERED: DIAZEPAM 5 MG TAB PO ONE (07:00)
[2017-04-17] MEDS ORDERED: VANCOMYCIN 1.25 GM in D5W 250 ML IV ONE (07:00)
[2017-04-17] MEDS ORDERED: diphenhydrAMINE 25 MG CAP PO ONE (07:00)
[2017-04-17] MEDS ORDERED: NS 1,000 ML IV SCH (07:00)
[2017-04-17] MEDS ORDERED: BACITRACIN IRRIGATION/NS 50,000 UNITS/1,000 ML BTL IRR ONE (07:00)
[2017-04-17] MEDS ORDERED: fentaNYL 100 MCG/2 ML INJ ONE (07:39)
[2017-04-17] MEDS ORDERED: LIDOCAINE 1% 300 MG/30 ML SDV ONE (07:39)
[2017-04-17] MEDS ORDERED: MIDAZOLAM 2 MG/2 ML VIAL ONE (07:40)
[2017-04-17] MEDS ORDERED: LIDO/EPI 1% **for epidural** 30 ML SDV ONE (07:40)
[2017-04-17] MEDS ORDERED: BUPIVACAINE 0.5% 30 ML SDV ONE (07:40)
[2017-04-17] MEDS ORDERED: IOPAMIDOL (ISOVUE-370) 150 ML BTL IV ONE (07:42)
[2017-04-17] MEDS: ASPIRIN EC 325 MG TAB PO SCH (08:57)
[2017-04-17] MEDS ORDERED: ASPIRIN 500 MG PO SCH (09:00)
[2017-04-17] MEDS ORDERED: ASPIRIN 325 MG TAB PO SCH (09:00)
[2017-04-17] MEDS: ENOXAPARIN 40 MG/0.4 ML SYR SC SCH (10:41)
[2017-04-17] MEDS: FLUTICASONE NASAL 120 SPRAYS/16 GM MDI EACHNARE SCH (10:42)
--- NOTE | 2017-04-17 10:49 | CPEKG ---
Heart Rate: 66 RR Interval: 909 P-R Interval: 158 QRSD Interval: 110 QT Interval: 432 QTC Interval: 453 P Center: 0 QRS Center: -24 T Wave Center: 18 EKG Severity - ABNORMAL ECG - EKG Impression: VENTRICULAR-PACED COMPLEXES EKG Impression: INCOMPLETE RIGHT BUNDLE BRANCH BLOCK EKG Impression: Paced beats are new since April 15, 2017 Electronically Signed By: Ramiro Ramirez 17-Apr-2017 17:04:46
[2017-04-17] MEDS: LIDOCAINE 5% 1 EA PATCH TD SCH (12:18)
[2017-04-17] MEDS: ATORVASTATIN CALCIUM 20 MG TAB PO SCH (12:18)
[2017-04-17] MEDS: FUROSEMIDE 40 MG TAB PO SCH (12:18)
--- NOTE | 2017-04-17 15:14 | HOSPPROG ---
Hospitalist Progress Note Assessment/Plan: * Syncope - suspect SSS with afib -s/p pacemaker * Rib fractures x 4 -IS, pain control * Afib, s/p maze -DC Bystolic -s/p LA appendage ligation - on ASA * Ascending aortic aneurysm repair * THONY - CPAP Subjective: no complaints. Rib pain okay with PCM placement Objective: Vital Signs Temp Pulse Resp BP Pulse Ox 37.0 C 79 18 140/65 H 93 04/17/17 13:51 04/17/17 13:51 04/17/17 13:51 04/17/17 13:51 04/17/17 13:51 Laboratory Results 04/17/17 05:48 04/17/17 05:48 04/16/17 04/17/17 04/18/17 05:59 05:59 05:59 Intake Total 450 Output Total 350 Balance 100 PT 13.7 SEC (12.0-15.0) 04/15/17 11:18 INR 1.06 (0.83-1.16) 04/15/17 11:18 CXR - no PTX EKG viewed, my personal interpretation is - paced rhythm - Physical Exam Constitutional: no apparent distress, appears nourished, not in pain Cardiovascular: regular rate and rhythym, no murmur, rub, or gallop Respiratory: no respiratory distress, no rales or rhonchi, clear to auscultation Gastrointestinal: normoactive bowel sounds, soft, non-tender abdomen, no palpable masses Skin: no rashes or abrasions, no fluctuance, no induration Neurologic: AAOx3, sensation intact bilaterally Psychiatric: interacting appropriately, not anxious, not encephalopathic, thought process linear ICD10 Worksheet Patient Problems: Problems Problem Status Onset Atrial fibrillation Acute Contusion Acute Left rib fracture Acute Nasal fracture Acute Syncope Acute
[2017-04-17] MEDS: LATANOPROST 0.005% 2.5 ML OPHT DROPS EACHEYE SCH (20:00)
[2017-04-17] MEDS: ACETAMINOPHEN 325 MG TAB PO SCH (20:01)
[2017-04-17] MEDS: diphenhydrAMINE 25 MG CAP PO SCH (20:01)
[2017-04-17] MEDS: PATCH REMOVAL 1 EA PATCH TD SCH (20:01)
[2017-04-17] MEDS: FAMOTIDINE 20 MG TAB PO SCH (20:01)
--- NOTE | 2017-04-17 20:04 | CPIP ---
[f rep st] INVASIVE CARDIAC PROCEDURE DATE OF PROCEDURE: 04/17/2017 INDICATIONS: The patient is 86 years old. He is currently admitted to the hospital after experienc ing an episode of syncope. He was found to be significantly bradycardic in atrial fibrillation at t he time of arrival with an ECG that indicated evidence of conduction system disease in the form of a bifascicular block. PROCEDURE: Implantation of a single-chamber pacemaker. TECHNIQUE: Following informed consent, after the administration of IV vancomycin and in the fasting state, the patient was brought to the cardiac catheterization laboratory. The left chest was prepp ed and draped in the usual sterile fashion. 2% lidocaine was infiltrated in the skin below the left clavicle. Using the #10 blade, a 3 cm incision was made. Blunt and sharp dissection was used to f ashion the pacemaker pocket. Using the modified Seldinger technique, access was gained to the axill harshad vein at the level of the first rib and a 7-Sammarinese Safe sheath was placed. Right ventricular michael d was brought to the field and positioned in the right ventricular apex. The lead was screwed into place, the sheath torn away and the lead secured to the pacemaker pocket floor using 0 Ethibond. At this point, the lead was tested. There was excellent capture and sensing. The pocket was irrigate d with antibiotic-containing solution. The device was brought to the field and affixed to the head according to planing machine operator guidelines. The device and the redundant portion of the right ventricular lead were placed in the pocket and the pocket was closed in 3 layers using 2 layers of interrupted suture with 2-0 and 3-0 Vicryl, and finally running subcuticular Stratafix for the skin. Steri-Stri ps and a dry dressing were applied. COMPLICATIONS: None. DEVICE INFORMATION: The pacemaker is a Medtronic Advisa SR, MRI compatible device, model number ASR 01, serial number [id number]. The right ventricular lead is a Medtronic, model 5076, 58 cm lead, se rial number [id number]. The capture threshold was 0.5 V at 0.5 milliseconds with lead impedance of 26 ohms and sensed R waves of 6.2 mV. DISPOSITION: The patient will be recovered in the CVC. He will be returned back to his room. /[id number]/MODL
[2017-04-18] MEDS: oxyCODONE IR 5 MG TAB PO PRN (00:38)
[2017-04-18 06:01] LABS: % IMMATURE GRANULYOCYTES 0.5 % (0.0-1.1); ABSOLUTE IMMATURE GRANULOCYTES 0.04 10^3/uL (0.00-0.10); ADD DIFF? NO; ADD MORPH? NO; ADD SCAN? NO; ATYPICAL LYMPHOCYTE FLAG 0 (0-99); FRAGMENT RBC FLAG 0 (0-99); HEMATOCRIT 40.8 % (40.0-51.0); HEMOGLOBIN 13.5 g/dL (13.7-17.5); LEFT SHIFT FLG 10 (0-99); LIPEMIA HEMOLYSIS FLAG 80 (0-99); MEAN CELL HEMOGLOBIN CONCENTR. 33.1 g/dL (32.4-36.7); MEAN CELL VOLUME 93.6 fL (81.5-99.8); MEAN PLATELET VOLUME 9.3 fL (8.7-11.7); PLATELET CLUMPS FLAG 10 (0-99); PLATELET COUNT 154 10^3/uL (150-400); RED BLOOD CELL COUNT 4.36 10^6/uL (4.40-6.38); RED CELL DISTRIBUTION WIDTH 12.7 % (11.5-15.2)
[2017-04-18 06:06] LABS: ANION GAP 11 mEq/L (8-16); CALCIUM 9.4 mg/dL (8.5-10.4); CARBON DIOXIDE 23 mEq/l (22-31); CHLORIDE 103 mEq/L (97-110); CREATININE 0.8 mg/dL (0.7-1.3); GLOMERULAR FILTRATION RATE > 60; GLUCOSE 99 mg/dL (70-100); POTASSIUM 4.8 mEq/L (3.5-5.2); SODIUM 137 mEq/L (134-144)
[2017-04-18 08:05] VITALS: RESP 17; TEMP 98.3
[2017-04-18] MEDS: ASPIRIN EC 325 MG TAB PO SCH (08:48)
[2017-04-18] MEDS: ATORVASTATIN CALCIUM 20 MG TAB PO SCH (08:48)
[2017-04-18] MEDS: FUROSEMIDE 40 MG TAB PO SCH (08:48)
[2017-04-18] MEDS: ENOXAPARIN 40 MG/0.4 ML SYR SC SCH (08:50)
--- NOTE | 2017-04-18 08:50 | CPEKG ---
Heart Rate: 74 RR Interval: 811 P-R Interval: 151 QRSD Interval: 106 QT Interval: 400 QTC Interval: 444 P Crowley: 0 QRS Crowley: -16 T Wave Crowley: 22 EKG Severity - ABNORMAL ECG - EKG Impression: VENTRICULAR-PACED COMPLEXES EKG Impression: INCOMPLETE RIGHT BUNDLE BRANCH BLOCK EKG Impression: Some artifact EKG Impression: No significant change from April 17, 2017 Electronically Signed By: Ramiro Ramirez 18-Apr-2017 16:01:45
[2017-04-18] MEDS: LIDOCAINE 5% 1 EA PATCH TD SCH (08:57)
[2017-04-18] MEDS: FLUTICASONE NASAL 120 SPRAYS/16 GM MDI EACHNARE SCH (10:16)
[2017-04-18] MEDS ORDERED: NEBIVOLOL HCL 5 MG TAB PO SCH (10:45)
--- NOTE | 2017-04-18 11:03 | PDCARPN ---
Cardiology Progress Note Assessment/Plan: Assessment/plan: 86-year-old male with a history of hypertension, valvular heart disease, paroxysmal atrial fibrillation, and history of ascending aortic aneurysm repair in 2011. He was admitted on April 15 with a syncopal echo episode complicated by significant injury including nasal fracture and bilateral rib fractures. He has not had profound bradycardia, but does have a slow ventricular response in atrial fibrillation. His Bystolic has been held. 1. Syncope: This is very concerning for Zeke arrhythmia. Troponins have been negative. Echocardiogram without regional wall motion abnormalities. Hold Bystolic. He is not orthostatic. Even without profound bradycardia, I recommended pacemaker insertion given the nature of his syncope and significant injury. He received a single chamber Medtronic PPM on 04/[address] Carroll. 2. Hypertension: Currently well controlled simply on amlodipine 2.5 mg daily. Given his VT, will restart low dose Bystolic and stop amlodipine. 3. Valvular heart disease and history of pulmonary hypertension: He has pulmonary hypertension has resolved with the use of CPAP. His valvular disease is stable and not contributory to his syncopal event. 4. Atrial fibrillation: Currently in atrial fibrillation. He has previously declined anticoagulation therapy other than aspirin. I had another discussion about this with the patient and his daughter. He understands the thromboemoblic risk associated with AF. He does have a left atrial appendage ligature. 5. Rib fractures and nasal fracture: He has pain is well managed. Appreciate Dr. Hart's assistance. He is using incentive spirometry and getting physical therapy. 6. Nonsustained VT: normal MPI in 12/2015. No CP, neg trops, normal wall motion on echo. Add back BB. If his CXR today shows stable pacer position, he may be discharged. He has one week and 3 week follow up in our office. Please see discharge plan. 04/18/17 11:00 Subjective: Carlitos feels well. Ambulated with difficulty. No pacer site pain. Rib fracture pain is manageable. Reviewed/Discussed With: family, hospitalist Objective: Vital Signs (8 Hrs) Temp Pulse Resp BP Pulse Ox 04/18/17 08:00 36.8 C 69 17 139/64 H 94 04/18/17 04:00 36.7 C 78 15 134/66 H 95 Intake/Output (24 Hrs) 04/17/17 04/18/17 04/19/17 05:59 05:59 05:59 Other: Intake Quantity Yes Sufficient Number of Voids Toilet 2 2 NAD JVP <10. Irreg irreg. no murmur/rub/gallop Lungs CTAB No edema Pacer site c/d/i. No TTP Result Diagrams: 04/18/17 05:43 04/18/17 05:43 Cardiac Labs: Cardiac Lab Results (72 Hrs) 04/16/17 04/15/17 00:20 18:44 Troponin I < 0.012 < 0.012 Telemetry: AF with intermittent V pacing. Brief nonsustained VT x 1; one ventricular triplet ICD10 Worksheet Patient Problems: Problems Problem Status Onset Atrial fibrillation Acute Syncope Acute Contusion Acute Left rib fracture Acute Nasal fracture Acute
[2017-04-18 12:15] VITALS: BP 120/56; PULSE 66; O2SAT 91
--- NOTE | 2017-04-18 13:17 | PDIAF ---
- Diagnosis Code Status: Do Not Resuscitate - Medication Management Discharge Medications: Medications to Continue on Transfer Atorvastatin Calcium [Lipitor 20 mg (*)] 20 mg PO DAILY 11/21/11 [Last Taken 07/23 05:45] Famotidine [Pepcid 20 MG (*)] 10 mg PO HS 11/21/11 [Last Taken 04/14/17 22:00] Ascorbic Acid [Vitamin C 500 mg (*)] 500 mg PO BID 04/02/13 [Last Taken 07:00] Aspirin EC [Aspirin EC 325 mg (*)] 325 mg PO DAILY 04/02/13 [Last Taken 05:45] Clobetasol 0.05% [Temovate Cream] 1 lety TP Q3D PRN 04/02/13 [Last Taken Unknown] Glucosam/Chondroit/C/Manganese [Cosamin Ds Capsule] 2 cap PO DAILY 04/02/13 [ Last Taken 04/15/17 07:00] Latanoprost [Xalatan 0.005% (RX)] 1 drop EACHEYE HS 04/02/13 [Last Taken 22:00] Ubidecarenone [Co Q-10 200 mg] 400 mg PO DAILY 04/02/13 [Last Taken 04/15/17 07: 00] Acetaminophen [Tylenol Arthritis] 650 mg PO HS 04/15/17 [Last Taken 04/14/17 22: 00] Aspirin 500 mg PO MOWEFR@0900 04/15/17 [Last Taken 04/15/17 09:00] Eye Promise 2 tab PO DAILY 04/15/17 [Last Taken 04/15/17 07:00] Fluticasone Nasal [Flonase Nasal [place]] 2 sprays NASAL DAILY 04/15/17 [Last Taken Unknown] Furosemide [Lasix 40 MG (*)] 40 mg PO DAILY 04/15/17 [Last Taken 04/15/17 05:45] diphenhydrAMINE [Benadryl 25 MG (*)] 25 mg PO HS 04/15/17 [Last Taken 04/14/17 22:00] Lidocaine 5% [Lidoderm 5% Patch (*)] 1 ea TD DAILY #10 patch 04/18/17 [Last Taken Unknown] Nebivolol HCl [Bystolic 5 mg (*)] 2.5 mg PO DAILY #30 tab 04/18/17 [Last Taken Unknown] oxyCODONE IR [Oxycodone Ir (*)] 5 - 10 mg PO Q4 PRN #30 tab 04/18/17 [Last Taken Unknown] Discharge Medications: Refer to the Discharge Home Medication list for PRN reason. - Orders Services needed: Home Care, Registered Nurse, Physical Therapy, Occupational Therapy Home Care Face to Face: I certify that this patient was under my care and that I had the required [id number] encounter meeting the encounter requirements on the discharge day. My findings support the fact that the patient is homebound as defined in CMS Chapter 7 Medicare Benefits Manual 30.1.1, The condition of the patient is such that there exists a normal inability to leave home and consequently, leaving home would require a considerable and taxing effort. Diet Recommendation: no restrictions on diet - Follow Up Care Current Providers and Referrals: Satish Morgan MD [Primary Care Provider] - As per Instructions Luly Mendoza MD [Medical Doctor] - (Follow up for device and wound check on April 24 at 1 pm Follow up with Dr Mendoza on May 06 at 10:45 am)
--- NOTE | 2017-04-19 08:19 | GDS ---
[f rep st] DISCHARGE SUMMARY DISCHARGE DIAGNOSES: 1. Syncope due to sick sinus syndrome with atrial fibrillation status post pacemaker. 2. Rib fractures x4. 3. Atrial fibrillation status post previous Maze and left atrial appendage ligation. 4. Ascending aortic aneurysm repair. 5. Obstructive sleep apnea on CPAP. HISTORY: Immanuel Geiger is an 86-year-old male with a known history of atrial fibrillation for whi ch he was on Bystolic. He had a massive syncopal event where he fell to the ground breaking 4 ribs and a nasal fracture. Cardiology felt he had sick sinus syndrome and pacemaker was indicated. This was placed without incident. Regarding his rib fractures, he was admitted to ICU given his age and extensive rib fractures. Pain was well controlled and he is doing very well at discharge with a little bit of oxycodone. He has done well with his incentive spirometer and will continue this post discharge. He was also started on lidocaine patches. Now that he has a pacemaker, Dr. Mendoza would like him to resume Bystolic at 2.5 mg p.o. daily and dis continue his amlodipine. She has recommended anticoagulation extensively in the past but he continu es to refuse and wishes to remain on aspirin alone. She will continue to address this as an outpati ent. DISCHARGE MEDICATIONS: Please see computer record for full detailed list. New medications: 1. Bystolic decreased to 0.5 mg p.o. daily. 2. Lidocaine patches over each broken rib daily. 3. Oxycodone 5-10 mg every 4 hours as needed. Discontinued medications: Amlodipine 2.5 mg p.o. daily. The remainder of his medications will remain as they were prior to admission. DISCHARGE INSTRUCTIONS: 1. Home Health PT VNS. 2. Standard post pacemaker device precautions and followup scheduled with Dr. Mendoza. Greater than 30 minutes' time was spent arranging this discharge. Patient was seen and examined by me on the day of discharge. /[id number]/MODL
== END 2017-04-18 14:15 | disposition home health service (06) | DRG 243 ==
LOC: F2W 13:45 → F2N 16:50
PROVIDERS: ADMIT Internal Medicine; ATTEND Internal Medicine
PROC: 02HK3JZ Insertion of Pacemaker Lead into Right Ventricle, Percutaneous Approach (ICD-10-PCS; principal; 2017-04-15)
PROC: 0JH635Z Insertion of Pacemaker, Single Chamber Rate Responsive into Chest Subcutaneous Tissue and Fascia, Percutaneous Approach (ICD-10-PCS; principal; 2017-04-15)
DX: I49.5 Sick sinus syndrome (principal); I48.0 Paroxysmal atrial fibrillation; S22.43XA Multiple fractures of ribs, bilateral, initial encounter for closed fracture; S02.2XXA Fracture of nasal bones, initial encounter for closed fracture; W18.30XA Fall on same level, unspecified, initial encounter; Y93.01 Activity, walking, marching and hiking; Y92.838 Other recreation area as the place of occurrence of the external cause; I10 Essential (primary) hypertension; G47.33 Obstructive sleep apnea (adult) (pediatric); Z85.46 Personal history of malignant neoplasm of prostate; Z85.038 Personal history of other malignant neoplasm of large intestine; I25.10 Atherosclerotic heart disease of native coronary artery without angina pectoris; E78.5 Hyperlipidemia, unspecified; I34.0 Nonrheumatic mitral (valve) insufficiency; I36.1 Nonrheumatic tricuspid (valve) insufficiency
CPT/HCPCS: 97161-GP; 97165-GO; 97530-GP; 97535-GO; C1786; C1898; G8978-GP-CI; G8979-GP-CI; G8987-GO-CJ; G8988-GO-CI; G8989-GO-CI; J1650; J2250; J3010; J3370; Q9967

== ENCOUNTER 2018-08-07 08:41 | Emergency (ER) | payer OTHER ==
--- NOTE | 2018-08-07 09:13 | EDPHY ---
H & P Stated Complaint: left lower leg pain this am at 0400 . denies known trauma/inj Time Seen by Provider: 08/07/18 08:44 HPI/ROS: Chief Complaint: Leg pain and swelling HPI: 88-year-old male woke up 4:00 a.m. This morning and noticed pain in his anterior left lower leg with some redness and some swelling. He denies any falls or injuries. No chest pain or shortness of breath. No recent periods of immobility. He has been able to ambulate. No fevers or chills. ROS: 10 systems were reviewed and were negative except those elements noted in the HPI. Social History: No smoking, no alcohol, no recreational drug use Family History: non-contributory Physical Exam: Gen: Awake, Alert, No Distress Ext: Moderate edema in his left lower leg. There is an area of erythema on his anterior left mid leg. No calf tenderness. Skin is warm to the touch. 2+ dorsalis pedis pulses. Capillary refills less than 2 sec. Sensations intact in all dermatomes. Skin: Per left leg exam Neuro: CN II-XII intact, Sensation grossly intact, Strength 5/5 in bilateral upper and lower extremities - Medical/Surgical History Hx Asthma: No Hx Chronic Respiratory Disease: No Hx Diabetes: No Hx Cardiac Disease: Yes Hx Renal Disease: No Hx Cirrhosis: No Hx Alcoholism: No Hx HIV/AIDS: No Hx Splenectomy or Spleen Trauma: No Other PMH: PSH: ascending aorta replaced; R shoulder; partial colectomy; vasectomy; appy; T&A; l inguinel hernia; atriclip GRACE exclusion clip, pacemaker 2017. PMH: AAA; hyperlipidemia; htn; afib; peripheral neuropathy; - Social History Smoking Status: Never smoked Constitutional: Initial Vital Signs Temperature (C) 37 C 08/07/18 08:52 Heart Rate 80 08/07/18 08:52 Respiratory Rate 18 08/07/18 08:52 Blood Pressure 168/89 H 08/07/18 08:52 O2 Sat (%) 93 08/07/18 08:52 O2 Delivery Mode Room Air Allergies/Adverse Reactions: lisinopril Allergy (Unknown, Verified 08/07/18 08:59) amiodarone HCl [From Cordarone] Allergy (Verified 08/07/18 08:59) cat dander Allergy (Verified 08/07/18 08:59) ibuprofen [From Advil] Allergy (Verified 08/07/18 08:59) ARMS ITCH NSAIDS (Non-Steroidal Anti-Inflamma Allergy (Verified 08/07/18 08:59) Penicillins Allergy (Verified 08/07/18 08:59) HANDS SWELLED Home Medications: Medication Instructions Recorded Aspirin EC 325 mg (*) 08/07/18 Benadryl 08/07/18 Clindamycin HCl [Clindamycin] 300 mg PO TID #30 cap 08/07/18 Co Q-10 400 mg 08/07/18 Diltiazem 08/07/18 Flonase Nasal Goehner 08/07/18 Hydrochlorothiazide 08/07/18 Pepcid AC 08/07/18 Tylenol 08/07/18 Vitamin C 08/07/18 Xalatan 08/07/18 Medical Decision Making - Diagnostics Imaging Results: Imaging Impressions Extremity Venous Study 08/07/18 09:11 Impression: 1. No deep venous thrombosis in the left lower extremity. 2. Thickening and edema appears to be associated with what may be the peroneus muscle tendon lateral distal calf. Findings discussed with Yasmani Patterson MD at 10:26 hour, 08/07/2018. Imaging: Discussed imaging studies w/ scallop binder Radiologist ED Course/Re-evaluation: 88-year-old male with calf swelling and pain. He does have some thickening of the peroneus muscles suggesting possible tendonitis however he has significant erythema on the anterior aspect of his calf suggesting cellulitis. Will he is penicillin allergic. Will start him on clindamycin. He will follow up with his primary care physician for recheck in several days. The area of erythema has been marked by skin marker by myself. If the redness spreads beyond the marked area he will return sooner for re-evaluation. Departure - Departure Disposition: Home, Routine, Self-Care Clinical Impression: Cellulitis Condition: Good Instructions: Cellulitis (ED) Additional Instructions: Please take her full course of antibiotics. Please eat yogurt a day or start taking a probiotic while you are taking the antibiotics. Follow up with primary care physician in 2-3 days for recheck. Return to the emergency department if the redness spreads outside of the marked area, for fevers or chills, confusion, lightheadedness, fainting, or any other concerns. Referrals: Satish Morgan MD [Primary Care Provider] - As per Instructions Prescriptions: Clindamycin HCl [Clindamycin] 300 mg PO TID #30 cap
[2018-08-07] MEDS ORDERED: CLINDAMYCIN 150 MG CAP PO ONE (10:40)
[2018-08-07 11:11] VITALS: BP 148/69
== END 2018-08-07 11:00 | disposition home or self-care (01) ==
LOC: CED 08:41
DX: L03.116 Cellulitis of left lower limb (principal)
CPT/HCPCS: 93971-PO

== ENCOUNTER 2018-12-05 08:19 | Emergency (ER) | payer OTHER ==
--- NOTE | 2018-12-05 08:39 | EDPHY ---
H & P Time Seen by Provider: 12/05/18 08:39 HPI/ROS: CHIEF COMPLAINT: Upper abdominal pain HISTORY OF PRESENT ILLNESS: Patient has been having symptoms intermittently for about a week. He says the symptoms will come on several times a day and get better if he belches. Today symptoms came on at 7:00 a.m. But are not 100% better with belching, or with antacid that he took earlier today. He describes upper abdomen and lower chest initially was on the right and now is on the left discomfort associated with a little bit worse neuropathy or tingling in his legs. Not associated with cough or shortness of breath or injury or trauma. No vomiting or diarrhea. Not changed with eating or exertion. REVIEW OF SYSTEMS: Eye: no change in vision ENT: no sore throat Cardiac: HPI no palpitations or syncope Pulmonary: No cough, has chronic shortness of breath Abdomen: HPI, constipation for couple of weeks Musculoskeletal: Chronic left lower leg edema greater than right Skin: no rash Neuro: Chronic bilateral peripheral neuropathy little bit worse with his symptoms Constitutional: no fever : no urinary symptoms A comprehensive 10 point review of systems is otherwise negative aside from elements mentioned in the history of present illness. PAST MEDICAL HISTORY: History and physical dated 04/15/2017 personally reviewed includes atrial fibrillation, hypertension, aortic aneurysm repair, prostate and colon cancer, appendectomy, sleep apnea. Pacemaker implantation 04/17/2017. Social history: Nonsmoker General Appearance: Alert and conversant, cooperative. Eyes: No scleral icterus. ENT, Mouth: Normal mucous membranes. Respiratory: Normal respiratory effort, breath sounds equal, lungs are clear to auscultation. Cardiovascular: Regular rate and rhythm. No murmur. Gastrointestinal: Abdomen is soft and no rebound or guarding. Negative Bello sign but has some very mild epigastric tenderness. No lower abdominal tenderness. Neurological: Alert, face symmetric, normal motor and sensory in extremities. Skin: Warm and dry, no rashes. Musculoskeletal: Left leg edema greater than right. Psychiatric: Not agitated. Emergency Department course/MDM: GI cocktail, chest x-ray, troponin and D-dimer, EKG, LFT and lipase. 1039: Nusser negative chest CT. 1116: Re-evaluated at this time feels well and asymptomatic and wants to go home which I think is reasonable. Has his symptoms are only epigastric and relieved by belching and helped in the emergency department by GI cocktail I think reflexes the most likely diagnosis. I think pancreatitis or cholecystitis or unlikely. He does not appear to have abnormalities in his chest or aorta to explain his symptoms. I think ACS would be unlikely. Smoking Status: Never smoked Constitutional: Initial Vital Signs Temperature (C) 36.7 C 12/05/18 08:22 Heart Rate 58 L 12/05/18 08:22 Respiratory Rate 18 12/05/18 08:22 Blood Pressure 165/72 H 12/05/18 08:22 O2 Sat (%) 91 L 12/05/18 08:22 O2 Delivery Mode Room Air Allergies/Adverse Reactions: lisinopril Allergy (Unknown, Verified 12/05/18 08:21) amiodarone HCl [From Cordarone] Allergy (Verified 12/05/18 08:21) cat dander Allergy (Verified 12/05/18 08:21) ibuprofen [From Advil] Allergy (Verified 12/05/18 08:21) ARMS ITCH NSAIDS (Non-Steroidal Anti-Inflamma Allergy (Verified 12/05/18 08:21) Penicillins Allergy (Verified 12/05/18 08:21) HANDS SWELLED Home Medications: Medication Instructions Recorded Aspirin EC 325 mg (*) 08/07/18 Benadryl 08/07/18 Co Q-10 400 mg 08/07/18 Diltiazem 08/07/18 Flonase Nasal Hamel 08/07/18 Hydrochlorothiazide 08/07/18 Pepcid AC 08/07/18 Tylenol 08/07/18 Vitamin C 08/07/18 Xalatan 08/07/18 Medical Decision Making - Diagnostics EKG Interpretation: 12-lead EKG interpreted by me; official reading is in computer system. My interpretation is atrial fibrillation with PVC and right bundle branch block. Imaging Results: Imaging Impressions Chest X-Ray 12/05/18 09:03 Impression: Subtle evidence for a new left basilar infiltrate. Chest CT might be helpful, as clinically directed. Chest/Thorax CTA 12/05/18 09:49 Impression: 1. No evidence for pulmonary embolism. 2. Postsurgical changes of ascending thoracic aorta aneurysm repair with stable appearance and no evidence for dissection or rupture. Atherosclerotic change thoracic aorta stable in appearance as above. 2. Other chronic findings as above which are stable. Results called and discussed with Rory Boswell on 12/05/2018 at 10:48 a.m. Imaging: I viewed and interpreted images myself - Data Points Laboratory Results: Laboratory Results 12/05/18 08:50 12/05/18 08:50 12/05/18 12/05/18 12/05/18 09:02 08:50 08:50 WBC RBC Hgb Hct MCV MCH MCHC RDW Plt Count MPV Neut % (Auto) Lymph % (Auto) Morgan % (Auto) Eos % (Auto) Baso % (Auto) Nucleat RBC Rel Count Absolute Neuts (auto) Absolute Lymphs (auto) Absolute Monos (auto) Absolute Eos (auto) Absolute Basos (auto) Absolute Nucleated RBC Immature Gran % Immature Gran # D-Dimer 0.93 ug/mLFEU H ug/mLFEU (0.00-0.50) Sodium 129 mEq/L L mEq/L (135-145) Potassium 4.4 mEq/L mEq/L (3.5-5.2) Chloride 94 mEq/L L mEq/L (97-110) Carbon Dioxide 24 mEq/l mEq/l (22-31) Anion Gap 11 mEq/L mEq/L (6-14) BUN 16 mg/dL mg/dL (7-23) Creatinine 0.9 mg/dL mg/dL (0.7-1.3) Estimated GFR > 60 Glucose 110 mg/dL H mg/dL (70-100) Calcium 9.1 mg/dL mg/dL (8.5-10.4) Total Bilirubin 0.6 mg/dL mg/dL (0.1-1.4) Conjugated Bilirubin 0.3 mg/dL mg/dL (0.0-0.5) Unconjugated Bilirubin 0.3 mg/dL mg/dL (0.0-1.1) AST 27 IU/L IU/L (17-59) ALT 30 IU/L IU/L (21-72) Alkaline Phosphatase 97 IU/L IU/L (38-126) POC Troponin I 0.00 ng/mL ng/mL (0.00-0.08) Total Protein 7.6 g/dL g/dL (6.3-8.2) Albumin 4.3 g/dL g/dL (3.5-5.0) Lipase 48 IU/L IU/L (23-300) 12/05/18 08:50 WBC 7.05 10^3/uL 10^3/uL (3.80-9.50) RBC 4.67 10^6/uL 10^6/uL (4.40-6.38) Hgb 14.2 g/dL g/dL (13.7-17.5) Hct 42.2 % % (40.0-51.0) MCV 90.4 fL fL (81.5-99.8) MCH 30.4 pg pg (27.9-34.1) MCHC 33.6 g/dL g/dL (32.4-36.7) RDW 13.3 % % (11.5-15.2) Plt Count 207 10^3/uL 10^3/uL (150-400) MPV 8.8 fL fL (8.7-11.7) Neut % (Auto) 76.7 % H % (39.3-74.2) Lymph % (Auto) 14.3 % L % (15.0-45.0) Morgan % (Auto) 7.1 % % (4.5-13.0) Eos % (Auto) 0.9 % % (0.6-7.6) Baso % (Auto) 0.4 % % (0.3-1.7) Nucleat RBC Rel Count 0.0 % % (0.0-0.2) Absolute Neuts (auto) 5.41 10^3/uL 10^3/uL (1.70-6.50) Absolute Lymphs (auto) 1.01 10^3/uL 10^3/uL (1.00-3.00) Absolute Monos (auto) 0.50 10^3/uL 10^3/uL (0.30-0.80) Absolute Eos (auto) 0.06 10^3/uL 10^3/uL (0.03-0.40) Absolute Basos (auto) 0.03 10^3/uL 10^3/uL (0.02-0.10) Absolute Nucleated RBC 0.00 10^3/uL 10^3/uL (0-0.01) Immature Gran % 0.6 % % (0.0-1.1) Immature Gran # 0.04 10^3/uL 10^3/uL (0.00-0.10) D-Dimer Sodium Potassium Chloride Carbon Dioxide Anion Gap BUN Creatinine Estimated GFR Glucose Calcium Total Bilirubin Conjugated Bilirubin Unconjugated Bilirubin AST ALT Alkaline Phosphatase POC Troponin I Total Protein Albumin Lipase Medications Given: Discontinued Medications Al Hydroxide/Mg Hydroxide (Maalox Susp) 30 ml PO ONCE ONE Stop: 12/05/18 09:03 Last Admin: 12/05/18 09:30 Dose: 30 ml Hyoscyamine Sulfate (Levsin, Hyomax-Sl) 0.25 mg PO ONCE ONE Stop: 12/05/18 09:03 Last Admin: 12/05/18 09:30 Dose: 0.25 mg Lidocaine (Lidocaine 2% Viscous) 15 ml PO ONCE ONE Stop: 12/05/18 09:03 Last Admin: 12/05/18 09:30 Dose: 15 ml Point of Care Test Results: Chemistry 12/05/18 09:02 POC Troponin I 0.00 ng/mL ng/mL (0.00-0.08) Departure - Departure Disposition: Home, Routine, Self-Care Clinical Impression: GERD (gastroesophageal reflux disease) Condition: Good Instructions: Gastroesophageal Reflux Disease (ED) Additional Instructions: Oral Maalox or Mylanta 30 min prior to meals for the next week. Referrals: Satish Morgan MD [Primary Care Provider] - As per Instructions
[2018-12-05] MEDS ORDERED: LIDOCAINE 2% VISCOUS 15 ML UDCUP PO ONE (09:02)
[2018-12-05] MEDS ORDERED: HYOSCYAMINE SULFATE 0.125 MG TAB PO ONE (09:02)
[2018-12-05] MEDS ORDERED: MAG HYDROX/AL HYDROX/SIMETH 30 ML UDCUP PO ONE (09:02)
[2018-12-05 09:10] LABS: PLATELET COUNT 207 10^3/uL (150-400)
--- NOTE | 2018-12-05 09:12 | CPEKG ---
Test Reason : OPEN Blood Pressure : / mmHG Vent. Rate : 083 BPM Atrial Rate : 000 BPM P-R Int : 208 ms QRS Dur : 157 ms QT Int : 412 ms P-R-T Axes : 000 -57 025 degrees QTc Int : 485 ms Atrial fibrillation Ventricular bigeminy Right bundle branch block Confirmed by Rory Boswell ([id number]) on 12/05/2018 9:11:31 AM Referred By: PHYSICIAN ED Confirmed By:Rory Boswell
[2018-12-05] MEDS ORDERED: IOPAMIDOL (ISOVUE 370) 100 ML BTL IV ONE (09:57)
[2018-12-05 11:45] VITALS: BP 173/87
== END 2018-12-05 11:44 | disposition home or self-care (01) ==
DX: K21.9 Gastro-esophageal reflux disease without esophagitis (principal); R60.0 Localized edema
CPT/HCPCS: 71046; 71275; 93005; 99285; Q9967; 84484-ER